=== PATIENT | male | born 2000 | race Caucasian/White ===

== ENCOUNTER 2023-10-26 21:09 | Emergency (ER) | payer BC, SELFPAY ==
[2023-10-26 21:15] VITALS: BP 140/80
[2023-10-26 21:41] LABS: Hematocrit 45.6 % (39.0-52.0); Hemoglobin 16.2 g/dL (13.0-18.0); Mean Corp Hgb Conc. 35.5 g/dL (33.0-37.0); Mean Corpuscular Hgb 28.8 pg (27.0-31.0); Mean Corpuscular Volume 81.1 fL (80.0-94.0); Mean Platelet Volume 9.8 fL (7.4-10.4); Platelet Count 324 10^3/uL (130-400); Red Blood Cell Count 5.62 10^6/uL (4.70-6.10); Red Cell Dist. Width 12.2 % (11.5-14.5); White Blood Cell Count 10.8 10^3/uL (4.8-10.8)
[2023-10-26 21:50] LABS: Blood Urea Nitrogen 14 mg/dl (9-20); Carbon Dioxide 22 mmol/L (22-30); Chloride 104 mmol/L (98-107); Glucose 112 mg/dl (70-99); Potassium 4.2 mmol/L (3.5-5.1); Sodium 136 mmol/L (135-145); eGFR > 60.00
[2023-10-26 22:49] VITALS: BMI 35.6
--- NOTE | 2023-10-26 23:10 | ED.GENMED ---
History of Present Illness
General
Chief Complaint: Bowel Problem
Source: patient
Time Seen by Provider: 10/26/23 22:46
Travel History
Have you had any contact with someone who has COVID-19?: No
Do you have any symptoms of coronavirus? Fever > 100 degrees, chills, cough, shortness of breath, sore throat, loss of taste or smell, muscle aches, or headache?: No
History of Present Illness
History of Present Illness:
23-year-old male presents to the emergency room complaining of crampy abdominal pain. Patient states the pains been present for the past couple days. He believes it is related to constipation. His last BM was about 10 days ago. Patient
attributes this to a course of amoxicillin. Patient denies any nausea or vomiting. The abdominal pain is crampy in nature and intermittent. He is not having much pain at the time of my evaluation. No fever or chills. Patient denies any previous
abdominal operations. He denies using opiates or illicit drugs.
Phy Exam
Physical Exam
Physical Exam:
General: Awake, Alert, Oriented X3. No acute distress.
Vitals: unremarkable
Head: Atraumatic
Eyes: Pupils equal, EOMI
Throat: Airway intact, no exudates
Neck: Trachea midline
Lungs: Clear and equal b/l
Heart: Regular rate, no murmurs
Abd: Soft, Nontender, No pulsatile mass
Rectal:
Neuro: Nonfocal
Skin: Warm, dry, no rash
Extremities: pulses equal b/l, no edema
Course
Orders/Labs/Results
Orders:
Orders
10/26/23 21:32
BMP [Basic Metabolic Panel] Urgent
Complete Blood Count/No Diff Urgent
10/26/23 23:10
Chest (PA) Obstruct Series [CR Obstruct Series W/pa Chest] Urgent
Comment:
Reason For Exam: abd pain
10/26/23 23:52
Lactulose [Duphalac/Chronulac] 20 grams PO NOW STA
Abnormal Lab Results
10/26/23
21:32
Glucose 112 H mg/dl
(70-99)
10/26/23 21:32
10/26/23 21:32
Vital Signs
Initial and Last Documented VS:
Initial Vital Signs
Temp Pulse Resp BP Pulse Ox
98.7 F 94 20 140/80 96
10/26/23 21:15 10/26/23 21:15 10/26/23 21:15 10/26/23 21:15 10/26/23 21:15
Last Documented Vital Signs
Temp Pulse Resp BP Pulse Ox
98.7 F 72 16 115/71 97
10/26/23 21:15 10/27/23 00:20 10/27/23 00:20 10/27/23 00:20 10/27/23 00:20
MDM/Problems Addressed
Differential Diagnosis Includes:
Constipation, diverticulitis
MDM/Problems Addressed:
Obstruction series suggests constipation. Physical exam and overall presentation consistent with constipation. Will treat with lactulose
*Radiology
Radiology exam reviewed: preliminary read by ED provider (Personally viewed patient's obstruction series noted increased stool burden)
*Pulse Oximetry
Patient hypoxic: no
*Critical Care Note
Total Time (30-74mins, 75-104mins- exclusive of procedures): Not Applicable
ED Attending Note
-
Portions of this chart may have been created with voice recognition software.� Occasional wrong word or��sound alike� substitutions may have occurred due to the inherent limitations of voice recognition software.
Discharge Plan
Departure
Patient Disposition: Home (Routine Discharge)
Date of Disposition: 10/27/23
Time of Disposition: 00:00
Patient with high blood pressure during this ER visit?: Yes
Condition: Good
Discharge Problem:
Abdominal pain, Constipation
Instructions: Constipation, Adult (DC), BLOOD PRESSURE
Prescriptions:
New
lactulose 20 gram/30 mL solution
20 g PO BID Qty: 1200 0RF
Rx Instructions:
Take two tablespoons twice a day for the next several days until constipation resolved.
Referrals:
NONE,* [Family Provider] -
Interventions
Interventions:
*Risk Screen - Suicide Last Done: 10/26/23 21:15
*General Assessment Last Done: 10/26/23 22:44
*Neglect/Abuse Screening Last Done: 10/26/23 21:15
ED- Fall Risk Assessment Last Done: 10/26/23 22:44
*ED COVID-19 Vaccine History Last Done: 10/26/23 22:44
*Nursing Disposition Last Done: 10/27/23 00:20
FU-Qylcmj-Mabosphobe Assessment Last Done: 10/26/23 22:44
Discharge Date and Time
Discharge Date/Time: 10/27/23 00:20
Print Language: SLOVENIAN
[2023-10-27] MEDS: DUPHALAC/CHRONULAC 20 GRAMS PO (00:17)
[2023-10-27 00:20] VITALS: BP 115/71
== END 2023-10-27 00:20 | disposition home or self-care (01) ==
LOC: EMR 21:09
PROVIDERS: EMERGENCY PHYSICIAN Emergency Medicine
DX: R10.9 Unspecified abdominal pain (principal); K59.00 Constipation, unspecified
CPT/HCPCS: 99283; 74022; 80048; 85027